=== PATIENT | female | born 1980 | race Hispanic/Latino ===

== ENCOUNTER 2023-03-10 19:26 | Emergency (ER) | payer OTHER ==
[~2023-03-10] VITALS: Ht 167.6 cm; Wt 108.9 kg
[2023-03-10 19:26] VITALS: BP 131/82; PULSE 83; RESP 20; TEMP 98.3; O2SAT 97
[2023-03-10] MEDS ORDERED: PREDNISONE ONE (20:02)
[2023-03-10] MEDS: PREDNISONE PO STA (20:04)
[2023-03-10 20:05] VITALS: BP 162/75; PULSE 84; RESP 18; O2SAT 96
== END 2023-03-10 20:09 | disposition home or self-care (01) ==
LOC: ER 19:26
DX: S63.101A Unspecified subluxation of right thumb, initial encounter (principal); X58.XXXA Exposure to other specified factors, initial encounter; Y93.89 Activity, other specified; Y92.89 Other specified places as the place of occurrence of the external cause; Y99.8 Other external cause status
CPT/HCPCS: 99283; J7512